=== PATIENT | female | born 1990 | race Caucasian/White ===

== ENCOUNTER 2019-06-27 09:30 | Emergency (ER) | payer OTHER ==
[2019-06-27 09:37] VITALS: BP 101/48; PULSE 94; TEMP 99.4; BMI 17.5
--- NOTE | 2019-06-27 09:53 | PDOC ---
History of Present Illness - General Chief Complaint: Respiratory Stated Complaint: HEADACHES/ ASTHMA Time Seen by Provider: 06/27/19 09:45 History Source: Patient - History of Present Illness Timing/Duration: reports: other (3 days ago) Past History - Past Medical History Allergies/Adverse Reactions: Allergies Allergy/AdvReac Type Severity Reaction Status Date / Time Penicillins Allergy Intermediate Rash Verified 06/27/19 09:37 Home Medications: Ambulatory Orders Albuterol Sulfate Inhaler - [Ventolin Hfa Inhaler -] 1 - 2 inh PO Q4H PRN Ferrous Sulfate [Feosol] 325 mg PO BID 09/09/15 Vitamins ([facility]) - 1 tab PO DAILY 09/09/15 Albuterol 0.083% Nebulizer Amy [Ventolin 0.083% Nebulizer Soln -] 1 neb NEB Q6H #20 vial 06/27/19 Asthma: Yes Cancer: No Cardiac Disorders: No Diabetes: No HTN: No Seizures: No Thyroid Disease: No - Immunization History Immunization Up to Date: Yes - Psycho Social/Smoking Cessation Hx Smoking Status: No Smoking History: Never smoked Have you smoked in the past 12 months: No Number of Cigarettes Smoked Daily: 0 Information on smoking cessation initiated: No Hx Alcohol Use: No Drug/Substance Use Hx: No Substance Use Type: None Hx Substance Use Treatment: No Review of Systems - Review of Systems Constitutional: Yes: Fever, Malaise HEENTM: Yes: Nose Congestion Respiratory: Yes: Cough. No: Shortness of Breath, Wheezing Cardiac (ROS): No: Chest Pain *Physical Exam - Vital Signs Last Vital Signs Temp Pulse Resp BP Pulse Ox 99.4 F 94 H 18 101/48 L 97 06/27/19 09:33 06/27/19 09:33 06/27/19 09:33 06/27/19 09:33 06/27/19 09:33 - Physical Exam General Appearance: Yes: Appropriately Dressed, Apparent Distress HEENT: positive: Normal ENT Inspection, Normal Voice, TMs Normal, Pharynx Normal. negative: Scleral Icterus (R), Scleral Icterus (L) Neck: positive: Supple. negative: Lymphadenopathy (R), Lymphadenopathy (L) Respiratory/Chest: positive: Lungs Clear, Normal Breath Sounds. negative: Respiratory Distress Cardiovascular: positive: Regular Rate, S1, S2 Integumentary: positive: Dry, Warm Neurologic: positive: Fully Oriented, Alert, Normal Mood/Affect Medical Decision Making - Medical Decision Making 06/27/19 09:50 29-year-old female history of asthma here with malaise with body aches, headaches, nasal congestion, rhinorrhea, cough and subjective fever x3 days. No shortness of breath wheezing or chest pain. Taking only Excedrin at home. see exam Viral syndrome, ? flu -Stable in ER w/ unremarkable exam -Dc w/ supportive tx, refill of alb for nebulizer Discharge - Discharge Information Problems reviewed: Yes Clinical Impression/Diagnosis: Viral syndrome Condition: Good Disposition: HOME - Additional Discharge Information Prescriptions: Albuterol 0.083% Nebulizer Amy [Ventolin 0.083% Nebulizer Soln -] 1 neb NEB Q6H #20 vial - Follow up/Referral - Patient Discharge Instructions Patient Printed Discharge Instructions: DI for Viral Syndrome - Post Discharge Activity Work/Back to School Note: Back to Work
== END 2019-06-27 09:54 | disposition home or self-care (01) ==
LOC: JERFT 09:30
DX: J06.9 Acute upper respiratory infection, unspecified (principal); B97.89 Other viral agents as the cause of diseases classified elsewhere; J45.909 Unspecified asthma, uncomplicated; Z88.0 Allergy status to penicillin
CPT/HCPCS: 99283-25